=== PATIENT | male | born 1965 | race Caucasian/White ===

== ENCOUNTER 2017-06-26 20:39 | Emergency (ER) | payer OTHER ==
[~2017-06-26] VITALS: Ht 185.4 cm; Wt 94.3 kg
[2017-06-27] MEDS ORDERED: INTESTINEX680 M1 PO (05:42)
[2017-06-27] MEDS ORDERED: DICY20TA PO (05:42)
[2017-06-27] MEDS ORDERED: CIPRO500 MG PO (05:42)
[2017-06-27] MEDS ORDERED: FLAGYL500MG PO (05:42)
== END 2017-06-27 05:37 | disposition home or self-care (01) ==
LOC: ER 20:39
DX: A09 Infectious gastroenteritis and colitis, unspecified (principal); K52.9 Noninfective gastroenteritis and colitis, unspecified